=== PATIENT | male | born 1985 | race Hispanic/Latino ===

== ENCOUNTER 2017-05-01 22:15 | Emergency (ER) | payer SELFPAY ==
[2017-05-01 22:16] VITALS: BMI 21.7
[2017-05-01 23:11] LABS: BASO % 0.5 % (0.0-2.0); EOS # 0.2 K/uL (0.0-0.7); EOS % 2.1 % (0.0-4.0); HEMOGLOBIN 15.8 g/dL (12.0-18.0); LYMPH # 3.2 K/uL (1.0-4.3); LYMPH % 40.4 % (20.0-40.0); MEAN CELL VOLUME 96.9 fL (80.0-94.0); MEAN CORPUSCULAR HEMOGLOBIN 34.1 pg (27.0-31.0); MEAN CORPUSCULAR HGB CONC 35.2 g/dL (33.0-37.0); MEAN PLATELET VOLUME 9.4 fL (7.2-11.7); MONO # 0.7 K/uL (0.0-0.8); MONO % 8.5 % (0.0-10.0); NEUT # 3.8 K/uL (1.8-7.0); NEUT % 48.5 % (50.0-75.0); NRBC % 0.1 % (0.0-2.0); RBC 4.62 Mil/uL (4.40-5.90); RED CELL DISTRIBUTION WIDTH 13.2 % (11.5-14.5); WHITE BLOOD COUNT 7.9 K/uL (4.8-10.8)
[2017-05-01 23:14] LABS: SQUAMOUS EPITHIAL < 1 /hpf (0-5); URINE BILIRUBIN NEGATIVE (NEGATIVE); URINE BLOOD NEGATIVE (NEGATIVE); URINE CLARITY Clear (Clear); URINE COLOR Yellow (YELLOW); URINE GLUCOSE (UA) NORMAL (Normal); URINE LEUKOCYTE ESTERASE NEG Leu/uL (Negative); URINE NITRATE NEGATIVE (NEGATIVE); URINE PROTEIN 1+ mg/dL (NEGATIVE)
[2017-05-01 23:27] LABS: BLOOD UREA NITROGEN 12 mg/dL (9-20); GFR AFRICAN-AMERICAN > 60
[2017-05-01 23:28] LABS: ALB/GLOB RATIO 1.5 (1.0-2.1); ALBUMIN 4.5 g/dL (3.5-5.0); ALT/SGPT 53 U/L (21-72); AST/SGOT 51 U/L (17-59); CALCIUM 9.2 mg/dl (8.6-10.4); GFR NON-AFRICAN AMERICAN > 60; LIPASE 45 U/L (23-300)
[2017-05-01 23:39] LABS: BARBITURATES, UR NEGATIVE (NEGATIVE); BENZODIAZEPINES, UR NEGATIVE (NEGATIVE); OPIATES, UR NEGATIVE (NEGATIVE); PHENCYCLIDINE, UR NEGATIVE (NEGATIVE)
--- NOTE | 2017-05-01 23:42 | C.PDOC ---
History Of Present Illness 32 y/o male presents to ED with complaints of painless right bright blood per rectum with bowl movements that began a week ago. Pt has hx of hemorrhoids. 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 Pt denies any other complaints. Time Seen by Provider: 05/01/17 22:32 Chief Complaint (Nursing): Male Genitourinary History Per: Patient History/Exam Limitations: no limitations Onset/Duration Of Symptoms: Hrs Current Symptoms Are (Timing): Still Present Associated Symptoms: denies: Fever, Nausea, Vomiting, Diarrhea, Loss Of Appetite , Back Pain, Chest Pain, Constipation, Urinary Symptoms Alleviating Factors: None Recent travel outside of the [place]: No Past Medical History Reviewed: Historical Data, Nursing Documentation, Vital Signs Vital Signs: Last Vital Signs Temp 97.8 F 05/01/17 22:19 Pulse 16 L 05/01/17 22:19 Resp 98 H 05/01/17 22:19 BP 124/76 05/01/17 22:19 Pulse Ox 93 L 05/01/17 23:43 - Medical History PMH: Anxiety Surgical History: No Surg Hx Family History: States: Unknown Family Hx - Social History Hx Tobacco Use: No Hx Alcohol Use: Yes (socially) Hx Substance Use: Yes - Immunization History Hx Tetanus Toxoid Vaccination: Yes Hx Influenza Vaccination: Yes Hx Pneumococcal Vaccination: Yes Review Of Systems Constitutional: Negative for: Fever Cardiovascular: Negative for: Chest Pain Respiratory: Negative for: Cough, Shortness of Breath Gastrointestinal: Negative for: Nausea, Vomiting, Abdominal Pain, Diarrhea Genitourinary: Positive for: Other (painless right bright blood per rectum with bowl movements). Negative for: Dysuria, Frequency Skin: Negative for: Rash Neurological: Negative for: Weakness, Numbness Physical Exam - Physical Exam Appears: Well, Non-toxic, No Acute Distress Skin: Normal Color, Warm, Dry Head: Atraumatic, Normacephalic Eye(s): bilateral: Normal Inspection Oral Mucosa: Moist Chest: Symmetrical, No Tenderness Cardiovascular: Rhythm Regular Rectal: No Tenderness, Other (rectal internal; hemorrhoid 6 o'clock position; no blood on exam) Neurological/Psych: Oriented x3, Normal Speech, Normal Cognition ED Course And Treatment - Laboratory Results Result Diagrams: 05/01/17 23:07 05/01/17 23:07 Lab Interpretation: Normal (occult stool blood neg.) O2 Sat by Pulse Oximetry: 93 (RA) Pulse Ox Interpretation: Normal Reevaluation Time: 23:41 Reassessment Condition: Improved Medical Decision Making Medical Decision Making: Ordered blood work, urinalysis and occult blood. ? internal hemorrids, normal HGB 16 no occult stool blood Refer to GI/Clinic to consider colonoscopy diet changes. Disposition Doctor Will See Patient In The: Office Counseled Patient/Family Regarding: Studies Performed, Diagnosis - Disposition Referrals: [facility] [Outside] Asa José MD [Staff Provider] - Disposition: HOME/ ROUTINE Disposition Time: 23:42 Condition: GOOD Additional Instructions: occult stool blood negative hemoglobin 16 (nl 12-18) high fiber diet, avoid fried foods and eat 7 fresh fruits and vegetables per day Follow-up in our outpatient Family Practice Clinic to consider referral to Gastroenterolog- Dr. José is Economic Geographer today Return to ED for significant changes in your bowel habits or symptoms. Instructions: Hemorrhoids (ED), Rectal Bleeding (ED) Forms: [employer] (Lithuanian) - Clinical Impression Clinical Impression: Bright red blood per rectum, Bleeding hemorrhoids - Scribe Statement The provider has reviewed the documentation as recorded by the Joaoibisha Cloud All medical record entries made by the Scribisha were at my direction and personally dictated by me. I have reviewed the chart and agree that the record accurately reflects my personal performance of the history, physical exam, medical decision making, and the department course for this patient. I have also personally directed, reviewed, and agree with the discharge instructions and disposition.
[2017-05-02 00:26] VITALS: BP 120/70; PULSE 82; RESP 16; TEMP 98; O2SAT 98
== END 2017-05-02 | disposition home or self-care (01) ==
LOC: C.ER 22:15
DX: K64.9 Unspecified hemorrhoids (principal)
CPT/HCPCS: 80053; 81001; 83690; 85025; 99284; G0328; G0480